=== PATIENT | male | born 1990 | race Caucasian/White ===

== ENCOUNTER 2019-10-21 10:26 | Day surgery (SDC) | payer OTHER ==
[~2019-10-21] VITALS: Ht 180.3 cm; Wt 110.7 kg
[2019-10-21] MEDS ORDERED: MIDAZOLAM 2 MG/2 ML VIAL ONE (12:18)
[2019-10-21] MEDS ORDERED: fentaNYL 0.05 MG/ML VIAL ONE (12:18)
[2019-10-21] MEDS ORDERED: fentaNYL 0.05 MG/ML VIAL IVP ONE (13:20)
[2019-10-21] MEDS ORDERED: MIDAZOLAM 2 MG/2 ML VIAL IVP ONE (13:20)
[2019-10-21] MEDS ORDERED: LIDOCAINE VISCOUS 2% 20 ML UDC ONE (13:22)
== END 2019-10-21 13:35 | disposition home or self-care (01) ==
LOC: MDS 10:26 → MMU 11:43 → MDS 13:35
PROVIDERS: ATTEND Internal Medicine Gastroenterology
DX: K70.30 Alcoholic cirrhosis of liver without ascites (principal); K76.0 Fatty (change of) liver, not elsewhere classified; F10.10 Alcohol abuse, uncomplicated; E66.01 Morbid (severe) obesity due to excess calories; Z79.899 Other long term (current) drug therapy; Z68.34 Body mass index [BMI] 34.0-34.9, adult
CPT/HCPCS: 43235; J2250; J3010